=== PATIENT | male | born 1935 | race American Indian/Alaskan Native ===

== ENCOUNTER 2018-08-19 10:20 | Day surgery (SDC) | payer MEDICARE, OTHER ==
--- NOTE | 2018-08-19 07:09 | Anesthesia Consultation ---
Anesthesia Consult and Med Hx Date of service: 08/19/18 - Airway Anesthetic Teeth Evaluation: Poor ROM Head & Neck: Adequate Mental/Hyoid Distance: Adequate Mallampati Class: Class II Intubation Access Assessment: Good - Pulmonary Exam CTA: Yes - Cardiac Exam Cardiac Exam: RRR - Pre-Operative Health Status ASA Pre-Surgery Classification: ASA3 Proposed Anesthetic Plan: MAC - Cardiovascular System Hx Hypertension: Yes - Other Systems Hx Cancer: Yes
[~2018-08-19 10:20] MED LIST: NACL 0.9% 1000 ML 1,000 ML IV SCH
--- NOTE | 2018-08-19 11:11 | Anesthesia Day of Surgery ---
Anesthesia Day of Surgery - Day of Surgery Patient Examined: Yes Patient H&P Reviewed: Yes Patient is NPO: Yes Beta Blockers: No
[2018-08-19] MEDS ORDERED: DIPRIVAN 10 MG/ML IV ONE ×4 (13:20→14:29)
[2018-08-19] MEDS ORDERED: WATER FOR IRRIG STERILE ONE (14:16)
--- NOTE | 2018-08-19 14:48 | Operative Report ---
Operative Report Operative Report: Date of procedure: 08/19/2018 Procedure: Colonoscopy with Snare polypectomy, Hot Biopsy Polypectomy. Attending physician: Tono Martin MD Science Interpreter: Tono Martin MD Indication: Patient is a 82-year-old male who presents for screening colonoscopy. This colonoscopy serves to evaluate patient so that treatment may be directed based on the findings. Consent: Informed consent was obtained after advising the patient and family regarding nature of this procedure, its indications, potential benefits as well as possible complications including but not limited to bleeding perforation and adverse reaction to medication, infection as well as other cardiopulmonary complications. An informed written and verbal consent was then obtained after due opportunity was provided for questions and answers. Monitoring: Patient was monitored continuously with pulse oximetry and electrocardiographic recordings as well as blood pressure recordings. Vital signs remained stable throughout this procedure with no untoward events. Preoperative assessment: Patient was assessed immediately prior to this procedure for capacity to tolerate monitored anesthesia care and moderate sedation as well as general anesthesia. Patient's ASA classification is 2, Mallampati class is 2, Hyomental distance is 3. Instrument: EasyPaintn video colonoscope Medications: Propofol given intravenously in divided doses. For details please refer to anesthesia records. Description of procedure: Patient was placed in the left lateral decubitus position after achieving sedation, a digital rectal examination was performed following which the colonoscope was introduced into the anal verge and advanced to the cecum which was identified by the cecal valve, the appendiceal orifice, as well as by the cecal strap and direct transillumination. The colonoscope was subsequently withdrawn with careful inspection of all mucosal surfaces. Patient tolerated this procedure well and was subsequently taken to the recovery room. The following findings were noted. Findings: Patient had a semi-pedunculated polyp seen in the ascending colon measuring about 1-1.5 cm. This was removed by snare electrocautery and retrieved. A Hemoclip was applied at the polypectomy defect. There was a pedunculated polyps in the transverse colon which was removed by snare polypectomy and retrieved. There was a diminutive polyp in the rectum that was removed by hot biopsy polypectomy and retrieved. The colon was very tortuous. The procedure was technically difficult and prolonged. There is severe diverticulosis involving the sigmoid colon descending colon and ascending colon. There was substantial retained stool seen throughout the colon. Patient was noted to have prominent large internal hemorrhoids seen on the retroflexed view at the anal verge. Impression: Ascending colon polyp status post snare polypectomy. Transverse colon polyp status post snare polypectomy . Rectal polyps, status post hot biopsy polypectomy. Diverticular disease of the colon. Prominent internal hemorrhoids. Retained stool. Plan: Follow pathology report. High-fiber diet. Consider repeat colonoscopy in 6 months due to retained stool and a very tortuous colon.
--- NOTE | 2018-08-19 14:49 | Discharge Summary ---
Short Stay Discharge Plan Weight Bearing Status: Weight Bear as Tolerated Diet: regular Follow up with: [facility] [Primary Care Provider] - 7 Days
[2018-08-19 15:07] VITALS: BP 157/89
== END 2018-08-19 10:21 | disposition home or self-care (01) ==
LOC: GIO 10:20
PROVIDERS: ATTEND Internal Medicine Gastroenterology
DX: Z12.11 Encounter for screening for malignant neoplasm of colon (principal); D12.2 Benign neoplasm of ascending colon; K63.5 Polyp of colon; K62.1 Rectal polyp; K57.30 Diverticulosis of large intestine without perforation or abscess without bleeding; K64.8 Other hemorrhoids; E78.00 Pure hypercholesterolemia, unspecified; I10 Essential (primary) hypertension; K21.9 Gastro-esophageal reflux disease without esophagitis; Z80.8 Family history of malignant neoplasm of other organs or systems; Z88.0 Allergy status to penicillin; Z79.899 Other long term (current) drug therapy; Z85.89 Personal history of malignant neoplasm of other organs and systems; Z98.890 Other specified postprocedural states; Z85.46 Personal history of malignant neoplasm of prostate
CPT/HCPCS: 45384; 45385; 88305; J2704; J7030

== ENCOUNTER 2019-03-23 10:08 | Day surgery (SDC) | payer OTHER ==
--- NOTE | 2019-03-23 11:28 | Anesthesia Day of Surgery ---
Anesthesia Day of Surgery - Day of Surgery Patient Examined: Yes Patient H&P Reviewed: Yes Patient is NPO: Yes
--- NOTE | 2019-03-23 11:30 | Anesthesia Consultation ---
Anesthesia Consult and Med Hx Date of service: 03/23/19 - Airway Anesthetic Teeth Evaluation: Caps ROM Head & Neck: Adequate Mental/Hyoid Distance: Adequate Mallampati Class: Class II Intubation Access Assessment: Probably Good - Pre-Operative Health Status ASA Pre-Surgery Classification: ASA2 Proposed Anesthetic Plan: MAC - Cardiovascular System Hx Hypertension: Yes (States he can climb two flights of stairs) - Gastrointestinal Hx Gastroesophageal Reflux Disease: Yes - Other Systems Hx Cancer: Yes
[2019-03-23] MEDS ORDERED: DIPRIVAN 10 MG/ML IV ONE ×2 (12:21)
--- NOTE | 2019-03-23 13:25 | Procedure Note ---
Date of procedure: 03/23/19 Pre-op diagnosis: Weight Loss/GERD/Colon Polyp Screening Post-op diagnosis: other (Mild to Moderate Erosive Esophagitis/Gastritis/Gastric Erosion/Multiple,Shallow Duodenal Ulcers/Mutiple,Cecal and Transverse Colon Polyps (removed by snare polypectomy and cold biopsy)/Extensive,Deep D iverticular Disease/Mild to Moderate Internal Hemorrhoid) Procedure: EGD with Biopsy/Colonoscopy with cold,Snare Polypectomy and cold biopsy Anesthesia: [facility] Surgeon: CASSIDY GABRIEL Estimated blood loss: minimal Pathology: list Specimen disposition: to lab Condition: stable Disposition: same day (Treat with PPI. Avoid aspirin and NSAID for 4 days; otherwise resume home medication and follow up as an outpatient ([phone]). Possible CT scan of the abdomen and pelvis as an Outpatient.)
--- NOTE | 2019-03-23 13:28 | Operative Report ---
PROCEDURE: Esophagogastroduodenoscopy with biopsy. INDICATIONS: The patient is an 83-year-old -[place] gentleman who has been having progressive weight loss. He has been having some GERD symptoms. EGD and a colonoscopy will be done for further evaluation of his possible cause of weight loss. The procedure was done after getting informed consent with MAC anesthesia. DESCRIPTION OF PROCEDURE: The procedure was done in the GI lab with assistance of the GI lab team, which included nurse RN Tawnya Burnett as well as damien Felder and assistance of anesthesia. Instrument was passed through the hypopharynx into the esophagus, which showed mild to moderate distal erosive esophagitis. Biopsy was done from the distal esophagus. There was endoscopic evidence of Grade 1, incidental esophageal varix. Stomach showed gastric erosion and gastritis, but no gastric ulcers were noted in the straight or the retroverted view. Biopsy was done from the gastric antrum, gastric body and angular incisura to rule out for H. pylori and atrophic gastritis. There was no evidence of any hiatal hernia. Pylorus was patent. Duodenum in the bulb showed multiple shallow duodenal ulcers. ASSESSMENT: History of weight loss. Findings in the EGD would not account for the patient's weight loss. Mild to moderate erosive esophagitis, gastric erosion, gastritis, multiple shallow duodenal ulcers. PLAN: To treat the patient with PPI. Avoid aspirin and aspirin-related products and to do a colonoscopy for further assessment. If the colonoscopy is unremarkable, the patient may require a CT scan of the abdomen and pelvis to be done for further evaluation as an outpatient. The patient will be advised to follow up in the office in 1-2 weeks' time and to resume previous medication except for any blood thinners, aspirin and aspirin-related products for the next 4 days. JOB# [id number] DONALD/VADIM BENTLEY
--- NOTE | 2019-03-23 13:31 | Operative Report ---
PROCEDURE: Colonoscopy with snare polypectomy and cold biopsy. The procedure done on 03/23/2019 with assistance of anesthesia and with the help of the GI lab team done in the GI lab and the GI lab team included Bradford Leyva. EGD done prior to the colonoscopy as part of evaluation of his weight loss, which showed mild to moderate erosive esophagitis, gastritis, gastric erosion and multiple shallow duodenal ulcers, which will be treated with PPI. DESCRIPTION OF PROCEDURE: Colonoscopy was done after getting informed consent. Initial rectal exam was unremarkable. Instrument was passed through the rectum onto the cecum, which was identified with ileocecal valve and appendiceal orifice. Visualization was fair to good. There were two polyps noted in the cecum, one was about 11 mm in diameter, removed by snare polypectomy and retrieved. The other was about 8-9 mm in diameter and removed by cold biopsy. The remaining part of the proximal colon showed normal mucosa. In the proximal transverse colon, there was an additional polyp, about 8-9 mm in diameter that was removed by cold biopsy. The remaining part of the transverse colon showed normal mucosa. There was extensive deep diverticular disease noted in the left colon and the rectum showed mild to moderate internal hemorrhoid on the retroverted view. There was minimal bleeding from the biopsy sites. No complications associated with the procedure. ASSESSMENT: History of weight loss, which will not be accounted for with the findings of the EGD and the colonoscopy. Multiple cecal and transverse colon polyps, which would not account for the weight loss. Multiple left colon diverticular disease. Again, there was minimal bleeding from the polypectomy sites and no complications associated with the procedure. The patient will be encouraged to take fiber supplements, avoid aspirin and aspirin-related products and anticoagulants for the next few days, but otherwise resume previous medication. Follow up in the office in 1-2 weeks' time. The patient will require a CT scan of the abdomen and pelvis for further assessment of the patient's weight loss, which will be done as an outpatient. JOB# [id number] DONALD/VADIM
[2019-03-23 14:12] VITALS: BP 135/79
== END 2019-03-23 10:09 | disposition home or self-care (01) ==
LOC: GIO 10:08
DX: R63.4 Abnormal weight loss (principal); D12.3 Benign neoplasm of transverse colon; D12.0 Benign neoplasm of cecum; K29.50 Unspecified chronic gastritis without bleeding; K64.8 Other hemorrhoids; B96.81 Helicobacter pylori [H. pylori] as the cause of diseases classified elsewhere; E78.00 Pure hypercholesterolemia, unspecified; I10 Essential (primary) hypertension; K21.0 Gastro-esophageal reflux disease with esophagitis; Z85.46 Personal history of malignant neoplasm of prostate; Z98.890 Other specified postprocedural states; Z79.899 Other long term (current) drug therapy; Z88.0 Allergy status to penicillin; Z80.8 Family history of malignant neoplasm of other organs or systems
CPT/HCPCS: 43239; 45380; 45385; 88305; 88342; J2704; J7030

== ENCOUNTER 2020-08-31 16:02 | Emergency (ER) | payer OTHER ==
[2020-08-31] MEDS ORDERED: ACETAMINOPHEN 500 MG TAB PO ONE (19:43)
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
[2020-08-31 22:35] VITALS: BP 115/59
== END 2020-08-31 22:33 | disposition home or self-care (01) ==
LOC: ED 16:02
DX: S80.01XA Contusion of right knee, initial encounter (principal); I10 Essential (primary) hypertension; K21.9 Gastro-esophageal reflux disease without esophagitis; Z98.890 Other specified postprocedural states; Z79.899 Other long term (current) drug therapy; Z88.0 Allergy status to penicillin; V49.59XA Passenger injured in collision with other motor vehicles in traffic accident, initial encounter; Y93.89 Activity, other specified; Y92.410 Unspecified street and highway as the place of occurrence of the external cause; Y99.8 Other external cause status
CPT/HCPCS: 70450; 72125; 72128